=== PATIENT | female | born 1990 | race Hispanic/Latino ===

== ENCOUNTER → 2016-05-29 | Outpatient (CLI) | payer BC ==
--- NOTE | 2016-05-29 19:04 | DI ---
Flank pain history. Study performed from heart to pubic symphysis without contrast administration. Sagittal and coronal reconstruction from the data set Dose: CTDI 4.7, DLP 209.4 Prior study: Ultrasound 02/28/14 and 04/30/16 Lung bases unremarkable. Heart normal. Liver spleen pancreas adrenal glands and kidneys normal. Neither ureter dilated. There are phleboliths on both sides of the pelvis. They cannot be correlated directly with the course of the ureter owing to patient lack of retroperitoneal fat. Uterus normal. Bowel loops normal appendix not seen. Uterus appears normal. Right ovarian cyst round at 2.7 cm diameter. Several small left-sided follicles identified. Neither o vary is enlarged Impression: Rather prominent right-sided ovarian cyst which may account for right-sided pain. No comp elling evidence of ureteral stone. Correlate for hematuria. Phleboliths are visualized bilaterally. Bony structures including the lumbar spine appear normal. Gallbladder appears normal.
== END ==
LOC: CT 09:55
DX: R10.84 Generalized abdominal pain (principal); R31.9 Hematuria, unspecified; N83.201 Unspecified ovarian cyst, right side
CPT/HCPCS: 74176

== ENCOUNTER → 2016-06-10 | Outpatient (CLI) | payer BC | LOC: MOB LAB 15:53 | PROVIDERS: ATTEND Family Medicine | DX: R31.9 Hematuria, unspecified (principal) | CPT/HCPCS: 87088 ==

== ENCOUNTER → 2016-12-19 | Outpatient (CLI) | payer BC | LOC: MOB LAB 17:11 | PROVIDERS: ATTEND Physician Assistant | DX: R30.0 Dysuria (principal) | CPT/HCPCS: 87088; 87186 ==